=== PATIENT | female | born 1995 | race Two or more races ===

== ENCOUNTER 2018-09-19 10:46 | Inpatient (IN) | payer OTHER ==
[~2018-09-19] VITALS: Ht 157.5 cm; Wt 78.0 kg
[2018-10-09] MEDS ORDERED: PRENATAL TABLE1 EAC1 PO (08:42)
== END 2018-10-11 15:53 | DRG 807 ==
LOC: OB/GYN 10-02 13:30 → LDR 10-09 07:37 → OB/GYN 10-09 07:37
PROVIDERS: ADMIT Specialist
PROC: 10E0XZZ Delivery of Products of Conception, External Approach (ICD-10-PCS; principal; 2018-10-09)
PROC: 0HQ9XZZ Repair Perineum Skin, External Approach (ICD-10-PCS; 2018-10-09)
PROC: 4A0HXFZ Measurement of Products of Conception, Cardiac Rhythm, External Approach (ICD-10-PCS; 2018-10-09)
DX: O70.0 First degree perineal laceration during delivery (principal); Z37.0 Single live birth; Z3A.38 38 weeks gestation of pregnancy

== ENCOUNTER 2018-10-08 18:40 | Outpatient (CLI) | payer OTHER ==
[2018-10-09] MEDS ORDERED: PRENATAL TABLE1 EAC1 PO (08:42)
== END 2018-10-09 08:40 | disposition still patient (30) ==
LOC: OBS/DEL 18:40
DX: O47.1 False labor at or after 37 completed weeks of gestation (principal); Z34.03 Encounter for supervision of normal first pregnancy, third trimester